=== PATIENT | female | born 2000 | race Caucasian/White ===

== ENCOUNTER 2024-08-02 06:48 | Day surgery (SDC) | payer OTHER, SELFPAY ==
[2024-07-19 08:39] VITALS: BMI 32.1
[2024-08-02] VITALS (9 sets, daily range): BP systolic 100–132; BP diastolic 62–86; PULSE 93–116; RESP 16–20; TEMP 36.3–36.8; O2SAT 96–100; BMI 33.2
--- NOTE | 2024-08-02 07:24 | P.PNAN_ITS ---
Anes - Eval Pre Procedure Procedure: Operation Date: 08/02/24 08:30 Proposed Procedures p Liposuction Full Back and Flanks - Dieudonne Waddell MD Date/Time: 08/02/24 07:24 Pre Op Diagnosis: Localized Adiposity Patient Data Age: 24 Gender: F Height: 1.73 m Weight: 96 kg Allergies Allergy/AdvReac Type Severity Reaction Status Date / Time No Known Allergies Allergy Verified 08/02/24 07:13 Home Medications ?Medication ?Instructions ?Recorded ?Confirmed ?Type No Home Medications 07/19/24 07/19/24 History Patient hx anesthesia problems: none Family hx anesthesia problems: none Results Review: All pre-operative results and documents have been reviewed as part of the pre- operative evaluation. [facility], LAT[facility] Social History Social History Smoking status: Never smoker Second hand tobacco smoke exposure: No Alcohol intake: current Drinks per week: 0 Alcohol use details: STATES 2 PER YEAR Substance use: former Substance use type: marijuana Other substance usage details: PT STATES SHE QUIT JUNE 08, 2024. PREVIOUSLY USED MARIJUANA 2X A WEEK Living arrangements: with family Spiritual care concerns: No Comments ASA2 Exam Day of Procedure 08/02/24 07:24 Heart: regular rate and rhythm Lungs: clear to auscultation Airway: Mallampati scale class II Neurological: alert and oriented
[2024-08-02] MEDS: TRANEXAMIC ACID 1,000 MG/10 ML AMPUL 1000 MG IV PUSH (07:50)
[2024-08-02] MEDS: LACTATED RINGERS 1,000 ML 30 ML IV CONT ×2 (07:50→11:42)
--- NOTE | 2024-08-02 07:55 | SUR.PREOP ---
PT STATES SHE SHOWERED WITH HIBICLENS LAST NIGHT AND THIS AM.
--- NOTE | 2024-08-02 08:02 | WPDHPUPDATE1 ---
History and Physical Update Update Date/Time: 08/02/24 08:02 History and Physical has been reviewed, including an updated exam of the patient. There are NO changes in the patient's condition. Risks, benefits, and alternatives have been discussed and questions answered. Patient agrees to proceed with procedure.
--- NOTE | 2024-08-02 08:14 | W.PM.PROC2 ---
Procedure Note - Detailed Date of Procedure 08/02/24 Pre-op Diagnosis Localized Adiposity Post-op Diagnosis Same Procedure Performed Suction lipectomu back / flank Surgeon Dieudonne Waddell MD Anesthesia General Indications History of abdominoplasty at an outside facility wit hno back / flank liposuction. Would love to proceed with areas of concern. Findings Tumescent: 3,000 cc Lipoaspirate: 3,600 Description of Procedure They are here today for the above procedure. Previously and again today the risks, benefits, alternatives were discussed in extensive detail. I wanted them to be very realistic about the risks involved as well as expectations. We discussed aftercare and what to monitor for. Made sure answered all of their questions to their satisfaction today and consent was obtained. They were marked in the preoperative holding area with their verification. The patient was taken to the operating room. Anesthesia was provided by anesthesiology. Placed prone on the operating room table with care taken to protect from injury. Prepped and draped in a standard sterile fashion. A surgical time-out was taken. Stab incisions were made and tumescent solution was infiltrated. Once adequate time was allowed for hemostasis a 5mm basket and 4mm ernesto cannula were utilized to complete suction lipectomy based on S.A.F.E. technique in multiple planes and passes. Suction lipectomy continued to result based on pre-operative planning, intra-operative observation, and rolling pinch test which were in full agreement. Port sites closed with 3-0 Nylon. Patient was then placed supine with care taken to protect from injury. Stab incisions were made and tumescent solution was infiltrated. Once adequate time was allowed for hemostasis a 5mm basket and 4mm ernesto cannula were utilized to complete suction lipectomy based on S.A.F.E. technique in multiple planes and passes. Suction lipectomy continued to result based on pre-operative planning, intra-operative observation, and rolling pinch test which were in full agreement. Port sites closed with 3-0 Nylon Topifoam and an abdominal binder were placed. The patient was transferred to the bed in a flexed position. [place] and taken to the PACU without difficulty. All instrument and sponge counts were correct at the end of the case. Estimated Blood Loss 40 Drains No Packing No Pathology None sent Complications No immediate complications Condition Stable Disposition PACU
--- NOTE | 2024-08-02 08:22 | SUR.PREOP ---
0805; FEMALE STAFF AND SPOUSE IN ROOM WHILE DR CHOUDHARY MARKED PT. PT WEARING KNEE HIGH FAITH HOSE FROM HOME. DR CHOUDHARY NOTIFIED. SCD's WERE PLACED ON ALSO
--- NOTE | 2024-08-02 08:23 | SUR.PREOP ---
0815; DR CHOUDHARY MADE AWARE OF PT'S HX OF MRSA, AND THAT PT TOOK HIBICLENS SHOWER LAST NOC AND THIS AM
[2024-08-02] MEDS: ceFAZolin SODIUM 2 GM/20 ML SW SYRINGE IV PUSH (08:25)
[2024-08-02] MEDS: LACTATED RINGERS IRRIG 1,000 ML, LIDOCAINE 1% LOCAL INJ 50 ML, EPINEPHrine HCL INJ 1 MG... INFILTRATE (10:59)
[2024-08-02] MEDS: fentaNYL CITRATE INJ (*CRX) 100 MCG/2 ML VIAL 25 MCG IV PUSH ×3 (12:11→12:18)
[2024-08-02] MEDS: oxyCODONE HCL (*CRX) 5 MG TAB IR PO (12:58)
== END 2024-08-02 13:26 | disposition home or self-care (01) ==
PROVIDERS: PCP Internal Medicine; Visit Provider Surgery Plastic and Reconstructive Surgery
PROC: (CPT 15877; principal; 2024-08-02 08:30)
DX: Z41.1 Encounter for cosmetic surgery (principal); E65 Localized adiposity
CPT/HCPCS: 15877